=== PATIENT | male | born 1990 | race Caucasian/White ===

== ENCOUNTER 2018-06-11 19:19 | Emergency (ER) | payer OTHER ==
[2018-06-11 20:23] VITALS: BP 144/79
--- NOTE | 2018-06-11 20:34 | UC ---
Skin Complaint HPI - HPI Summary HPI Summary: Pt presents with c/o of redness and mild swelling on left anterior hand at base of thumb. Pt had as laceration at the base of left thumb that he had repaired at [facility]. Pt states that he had a tetanus vaccine at time of repair. Pt does not have a pcp and removed his sutures at home yesterday.Pt is concerned that wound is infected. Laceration is closed, edges well approximated and scab formed and dry. - History of Current Complaint Chief Complaint: UCSkin Time Seen by Provider: 06/11/18 20:18 Stated Complaint: POSSIBLE INFECTION LEFT HAND WOUND Hx Obtained From: Patient Onset/Duration: Gradual Onset, Still Present Skin Exposure Onset/Duration: Weeks Ago Timing: Constant Onset Severity: Moderate Current Severity: Mild Pain Intensity: 0 Location: Hand (Left) Character: Swelling, Redness Aggravating Factor(s): Nothing Alleviating Factor(s): Nothing Associated Signs & Symptoms: Positive: Negative - Allergy/Home Medications Allergies/Adverse Reactions: Allergies Allergy/AdvReac Type Severity Reaction Status Date / Time No Known Allergies Allergy Verified 04/10/13 20:49 PMH/Surg Hx/FS Hx/Imm Hx Previously Healthy: Yes - Surgical History Surgical History: None - Family History Known Family History: Positive: Cardiac Disease - Social History Occupation: Employed Full-time Lives: With Family Alcohol Use: Rare Substance Use Type: None Smoking Status (MU): Never Smoked Tobacco Have You Smoked in the Last Year: No Review of Systems All Other Systems Reviewed And Are Negative: Yes Constitutional: Positive: Negative Skin: Positive: Other - laceration that was repaired with sutures. 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 Eyes: Positive: Negative ENT: Positive: Negative Respiratory: Positive: Negative Cardiovascular: Positive: Negative Gastrointestinal: Positive: Negative Genitourinary: Positive: Negative Motor: Positive: Negative Neurovascular: Positive: Negative Musculoskeletal: Positive: Negative, Edema Neurological: Positive: Negative Psychological: Positive: Negative Is Patient Immunocompromised?: No Physical Exam Triage Information Reviewed: Yes Appearance: Well-Appearing Vital Signs: Initial Vital Signs Temp 97.0 F 06/11/18 20:20 Pulse 69 06/11/18 20:20 Resp 16 06/11/18 20:20 BP 144/79 06/11/18 20:20 Pulse Ox 98 06/11/18 20:20 Vital Signs Reviewed: Yes Eye Exam: Normal ENT: Positive: Hearing grossly normal Neck exam: Normal Respiratory: Positive: No respiratory distress Musculoskeletal Exam: Normal Musculoskeletal: Positive: Strength Intact, ROM Intact, No Edema - mild edema at laceration site Neurological Exam: Normal Psychological Exam: Normal Skin Exam: Other - laceration healed, edges well apporximated, scab formed at laceration site, mild erythema surround wound, hash sneed left by sutures, no purulent drainage, no c/o tenderness, no red streaking from wound site Course/Dx - Differential Diagnoses - Skin Complaint Differential Diagnoses: Cellulitis - Diagnoses Provider Diagnosis: Infected wound Discharge - Sign-Out/Discharge Documenting (check all that apply): Patient Departure All imaging exams completed and their final reports reviewed: No Studies - Discharge Plan Condition: Stable Disposition: HOME Prescriptions: Cephalexin CAP* [Keflex 500 CAP*] 500 mg PO Q8H #21 cap Patient Education Materials: Wound Infection (ED) Referrals: [facility] [Outside] - If Needed No Primary Care Phys,NOPCP [Primary Care Provider] - Additional Instructions: Please keep wound clean and dry. Apply antibiotic ointment daily and cover with a dressing. Please change the dressing every 12 hours or more frequenctly if it becomes soiled or wet. Monitor for any worsening of infection such as warmth, tenderness, purulent discharge, fever or "red streaking" from wound. please follow up with a primary care provider as needed. - Billing Disposition and Condition Condition: STABLE Disposition: Home
== END 2018-06-11 20:43 | disposition home or self-care (01) ==
LOC: UCCORT 19:19
DX: S61.012D Laceration without foreign body of left thumb without damage to nail, subsequent encounter (principal); L08.9 Local infection of the skin and subcutaneous tissue, unspecified; W45.8XXD Other foreign body or object entering through skin, subsequent encounter
CPT/HCPCS: 99202; G0463